=== PATIENT | female | born 1950 | race Caucasian/White ===

== ENCOUNTER 2018-02-27 11:27 | Emergency (ER) | payer MEDICARE, OTHER ==
[~2018-02-27] VITALS: Ht 157.5 cm; Wt 64.9 kg
[~2018-02-27 11:27] MED LIST: DOK250 MG PO; HYDROCODON-ACE1 EA11 PO; IBUPROFEN400 MG PO; ONDANSETRON HCL4 MG PO; OXYCODONE HCL5 MG PO; TYLENOL325 MG PO; XARELTO10 MG PO
--- OUTSIDE RECORDS SUMMARY | 2018-02-27 12:00 | XMS | Clinical Summary ---
Demographics + + + | Address | [address] | | | [place] [address] | + + + | Home Phone | | + + + | Preferred Language | Unknown | + + + | Marital Status | | + + + | Evangelical Affiliation | [id number] | + + + | Race | Unknown | + + + | Ethnic Group | Unknown | + + + Author + + + | Author | [facility] | | | and [place] | + + + | Organization | [facility] | | | and [place] | + + + | Address | Unknown | + + + | Phone | Unavailable | + + + Support + + +---------+ + | Name | Relationship | Address | Phone | + + +---------+ + | Kevin Coon ECON | Unknown | | + + +---------+ + Care Team Providers + +------+ + | Care Patent Prosecution Attorney Name | Role | Phone | + +------+ + | Wicho Woodson | PP | | + +------+ + Allergies + + + + + + | Active Allergy | Reactions | Severity | Noted | Comments | | | | | Date | | + + + + + + | Sulfa Antibiotics | Other (See Comments) | | 06/05/20 | As a child, mom | | | | | 15 | told her - doesn't | | | | | | know reaction | + + + + + + Current Medications + + +-------+---------+------+------+-------+ | Prescription | Sig. | Disp. | Refills | Star | End | Statu | | | | | | t | Date | s | | | | | | Date | | | + + +-------+---------+------+------+-------+ | RESTASIS 0.05 % | Place 1 drop into | | 5 | 06/1 | | Activ | | ophthalmic emulsion | both eyes 2 times | | | 2/20 | | e | | | daily. | | | 17 | | | + + +-------+---------+------+------+-------+ | doxycycline | Take 50 mg by mouth | | 3 | 07/1 | | Activ | | (VIBRAMYCIN) 50 MG | Daily. | | | 0/20 | | e | | capsule | | | | 17 | | | + + +-------+---------+------+------+-------+ Active Problems + + + | Problem | Noted Date | + + + | H/O TKA Total knee arthroplasty, right - 2013 | 06/23/2017 | + + + | Raynaud's disease | 06/23/2017 | + + + | Sjogren's disease | 11/03/1994 | + + + + + | Overview: Sj gren's syndrome is an autoimmune disease | | characterized by dryness of the mouth and eyes. | + + Social History + +-------+ +--------+------+ | Tobacco Use | Types | Packs/Day | Years | Date | | | | | Used | | + +-------+ +--------+------+ | Never Smoker | | | | | + +-------+ +--------+------+ + +---+---+---+ | Smokeless Tobacco: | | | | | Never Used | | | | + +---+---+---+ + + +---------+ + | Alcohol Use | Drinks/We | oz/Week | Comments | | | ek | | | + + +---------+ + | Yes | | | once a month | + + +---------+ + + + + | Sex Assigned at | Date Recorded | | | | + + + | Not on file | | + + + Last Filed Vital Signs + + + + | Vital Sign | Reading | Time Taken | + + + + | Blood Pressure | 120/66 | 06/24/2017899 PDT | + + + + | Pulse | 60 | 06/24/2017899 PDT | + + + + | Temperature | 37 C (98.6 F) | 06/24/201743 PDT | + + + + | Respiratory Rate | 13 | 06/24/2017899 PDT | + + + + | Oxygen Saturation | 100% | 06/24/2017899 PDT | + + + + | Inhaled Oxygen | - | - | | Concentration | | | + + + + | Weight | 66.7 kg (147 lb) | 06/24/2017710 PDT | + + + + | Height | 157.5 cm (5' 2") | 06/24/2017710 PDT | + + + + | Body Mass Index | 26.89 | 06/24/2017710 PDT | + + + + Plan of Treatment + + + + + | Health Maintenance | Due Date | Last Done | Comments | + + + + + | Hepatitis C | | | | | Screening | 8 | | | + + + + + | Vaccine: | | | | | Dtap/Tdap/Td (1 - | 7 | | | | Tdap) | | | | + + + + + | BREAST CANCER | | | | | SCREENING (MAMM Q2 | 8 | | | | YEARS 50-74) | | | | + + + + + | COLON CANCER | | | | | SCREENING | 8 | | | | (COLONOSCOPY EVERY | | | | | 10 YEARS 50-75) | | | | + + + + + | Vaccine: | | | | | Pneumococcal 65+ | 3 | | | | Low/Medium Risk (1 | | | | | of 2 - PCV13) | | | | + + + + + | Vaccine: Influenza | | | | | (Season Ended) | 8 | | | + + + + + Implants + +--------+--------+ +--------+--------+--------+ | Implanted | Type | Area | Manufacture | Device | Expira | Model | | | | | r | | tion | / | | | | | | Identi | Date | Serial | | | | | | fier | | / Lot | + +--------+--------+ +--------+--------+--------+ | Lens Tecnis Preloaded Pcb | Generi | Right: | GOMES | | 12/06/ | [id number] | | 20.5 - [id number]: | c | Eye | MEDICAL | | 2020 | [id number] | | Qty: 1 on 06/06/2017 by | | | [employer] - | | | /[id number] | | Igor Donato [place] | | | [place] | | | [id number] | | | | | | | | / | + +--------+--------+ +--------+--------+--------+ | Lens Tecnis Preloaded Pcb | Generi | Left: | GOMES | | 05/01/ | [id number] | | 21.5 - [id number]: | c | Eye | MEDICAL | | 2020 | [id number] | | Qty: 1 on 06/24/2017 by | | | [employer] - | | | /[id number] | | Igor Donato MD | | | [place] | | | [id number] | | | | | | | | / | + +--------+--------+ +--------+--------+--------+ Results Not on filefrom Last 3 Months Insurance + +--------+ +--------+ +---------+ | Payer | Benefi | Subscriber | Type | Phone | Address | | | t Plan | ID | | | | | | / | | | | | | | Group | | | | | + +--------+ +--------+ +---------+ | MEDICARE | MEDICA | xxxxxxxxxx | Medica | [phone]- | | | | RE | | re | [phone] | | | | PART A | | | | | | | AND B | | | | | + +--------+ +--------+ +---------+ | [employer] | UNITED | [phone] | Indemn | [phone] | | | | OF | | ity | 1000 | | | | [place] | | | | | | | MDCR | | | | | | | SUPPL | | | | | + +--------+ +--------+ +---------+ + +--------+ +--------+ + + | Guarantor Name | Accoun | Relation to | Date | Phone | Billing Address | | | t Type | Patient | of | | | | | | | | | | + +--------+ +--------+ + + | LEANA COON | Person | Self | [birth year] | Home: | [address] | | [address] | jo/Wojciech | | [phone] [place] [address] | | | benita | | | [phone] | | + +--------+ +--------+ + +
--- NOTE | 2018-02-28 20:56 | EKG ---
[facility] [address] [facility] [place] [address] Signed Normal sinus rhythm Normal ECG No previous ECGs available Confirmed by SALLY HARKINS MD ([id number]) on 02/28/2018 8:56:37 PM Electronically Signed By: SALLY HARKINS MD 02/28/18 2056 PATIENT NAME: ANTONIEDWENDY MEJIA Electrocardiogram DATE OF : 46 PHYSICIAN: SALLY HARKINS MD REPORT #: [id number] REPORT IS CONFIDENTIAL AND NOT TO BE RELEASED WITHOUT AUTHORIZATION
== END 2018-02-27 12:59 | disposition home or self-care (01) ==
LOC: ED 11:27
DX: R07.89 Other chest pain (principal); Z88.2 Allergy status to sulfonamides; Z79.899 Other long term (current) drug therapy
CPT/HCPCS: 71045; 80053; 81001; 84484; 85025; 93005; 93010; 99283

== ENCOUNTER 2018-07-04 17:30 | Emergency (ER) | payer MEDICARE, OTHER ==
[~2018-07-04] VITALS: Ht 157.5 cm; Wt 64.9 kg
[2018-07-04] MEDS ORDERED: FAMOTIDINE40 MG PO (17:48)
[2018-07-04] MEDS ORDERED: POLYETHYLENE G255 GM PO (17:49)
[2018-07-04] MEDS ORDERED: SENNA-S LAXATI1 EACH PO (17:49)
[2018-07-04] MEDS ORDERED: FLAGYL500 MG PO (20:19)
[2018-07-04] MEDS ORDERED: CIPRO500 MG PO (20:19)
== END 2018-07-04 20:33 | disposition home or self-care (01) ==
LOC: ED 17:30
DX: K57.92 Diverticulitis of intestine, part unspecified, without perforation or abscess without bleeding (principal); K57.30 Diverticulosis of large intestine without perforation or abscess without bleeding; Z88.2 Allergy status to sulfonamides; Z79.899 Other long term (current) drug therapy
CPT/HCPCS: 74177; 80053; 81001; 82150; 83690; 85025; 96361; 96374; 99284; J2405; J7030; Q9967

== ENCOUNTER 2019-03-22 12:07 | Day surgery (SDC) | payer MEDICARE, OTHER ==
[~2019-03-22] VITALS: Ht 157.5 cm; Wt 69.4 kg
[~2019-03-22 12:07] MED LIST changes: +CIPRO500 MG PO; +FAMOTIDINE40 MG PO; +FLAGYL500 MG PO; +POLYETHYLENE G255 GM PO; +SENNA-S LAXATI1 EACH PO
--- NOTE | 2019-03-22 13:37 | NUR ---
03/22/19 1337 Sidra Estrada 1328 PT ARRIVED IN PACU AWAKE WITH NO C/O'S. ABD SOFT AND LAYING ON L SIDE. 1335 REPOSITONED TO BACK PER PT REQUEST.
--- NOTE | 2019-03-22 15:45 | NUR ---
1500 PT COMPLAINS ABOUT BEING COLD WARM BLACKET GIVEN AND GARCIA HUGGER USED. PT FELL BACK TO SLEEP.
--- NOTE | 2019-03-22 15:45 | NUR ---
1425 PT BACK TO ROOM FROM PACU SLEEPY BUT AROUSABLE DENIES PAIN OR NAUSEA.
--- NOTE | 2019-03-22 15:47 | NUR ---
1530 PT AWAKE AND ALERT STATES READINESS TO GO HOME PT DRESSED ON HER OWN DISCHARGE INSTRUCTIONS GIVEN TO PT SHE VOICED UNDERSTANDING.
--- NOTE | 2019-03-23 11:41 | OR ---
[facility] [address] [place], [place] [address] Signed DATE OF OPERATION: 03/22/2019 SURGEON: Livan Parikh MD PREOPERATIVE DIAGNOSES: 1. History of diverticulitis with abnormal thickening in sigmoid colon. 2. No family history of colon cancer. POSTOPERATIVE DIAGNOSES: 1. Extensive diverticular changes of sigmoid and left colon. 2. Polyps x2 (splenic flexure and sigmoid). PROCEDURE: Total colonoscopy to cecum with cold morcellation polypectomy x2. ANESTHESIA: Intravenous sedation with fentanyl 100 mcg, Versed 4 mg. INDICATION: This 68-year-old white woman is a patient Dr. Harkins and is referred for colonoscopy. She has had diverticulitis in the past including an episode this spring. She underwent a CT scan of the abdomen and pelvis on July 04, 2018, showing a circumferential thickening of the sigmoid colon, considered likely related to diverticular disease. A segment of thickening was about 6 inches in length. There was pericolonic stranding and some pelvic fluid consistent with diverticulitis. However, the possibility of neoplasm was considered as well. She has no family history of colon cancer. Her last colonoscopy was 2013 for the indication of rectal bleeding, which showed to have only the diverticula. She is admitted at this time to undergo colonoscopy. She understands the risks of bleeding, infection, and perforation. FINDINGS: The prep was excellent. Complete colonoscopy was undertaken to the cecum without question. There were two polyps, both of them rather small, one at the splenic flexure. The other in the sigmoid, both were excised completely with cold morcellation technique. There were no other findings of concern and specifically no sign of cancer. PROCEDURE: The patient was brought to the endoscopy suite and placed in lateral decubitus position. She was given intravenous sedation to the point of slurred speech and nystagmus with full cardiopulmonary monitoring. Digital rectal examination was normal. Electronically Signed By: LIVAN PARIKH MD 03/23/19 1141 PATIENT NAME: ED CORRALES OPERATIVE REPORT DATE OF : 46 REPORT #: [id number] PHYSICIAN: LIVAN PARIKH MD PCP: SALLY HARKINS MD REPORT IS CONFIDENTIAL AND NOT TO BE RELEASED WITHOUT AUTHORIZATION [facility] [address] [place], [place] [address] Signed An Olympus video colonoscope was passed in the rectum and manipulated throughout the colon. Sigmoid diverticula were noted as were left-sided diverticulitis. Scope was advanced beyond this ultimately to the cecum. Ileocecal valve and appendiceal orifice were normal. Scope was withdrawn from that point and examination undertaken. At the about the splenic flexure was a small sessile polyp this was excised with cold morcellation technique. Further withdrawal of scope showed diverticula once again in the left sigmoid colon. A small sigmoid polyp was noted. This too was excised with cold morcellation technique. It was clearly an adenoma based on its mucosal characteristics. Further withdrawal to the rectum allowed for retroflexed view, which was normal. The scope was straightened, withdrawn, removed, and the patient was taken to recovery room in good condition. CONCLUDING DIAGNOSES: 1. Diverticular changes of sigmoid and left colon. 2. Polyps x2. PLAN: Recommend repeat colonoscopy in 5 years. Recommend also high-fiber diet. She will return to the ongoing care of Dr. Harkins. Livan Parikh MD JM/MODL /[id number] cc: Sally Harkins MD Copies: SALLY HARKINS MD ~ Electronically Signed By: LIVAN PARIKH MD 03/23/19 1141 PATIENT NAME: ED CORRALES OPERATIVE REPORT DATE OF : 46 REPORT #: [id number] PHYSICIAN: ILVAN PARIKH MD PCP: SALLY HARKINS MD REPORT IS CONFIDENTIAL AND NOT TO BE RELEASED WITHOUT AUTHORIZATION
== END 2019-03-22 15:40 | disposition home or self-care (01) ==
LOC: OPS 12:07 → DS 12:07 → OPS 14:00
PROVIDERS: Surgery
PROC: 0DBN8ZZ Excision of Sigmoid Colon, Via Natural or Artificial Opening Endoscopic (ICD-10-PCS; 2019-03-22)
PROC: 0DBL8ZZ Excision of Transverse Colon, Via Natural or Artificial Opening Endoscopic (ICD-10-PCS; principal; 2019-03-22 14:00)
DX: Z12.11 Encounter for screening for malignant neoplasm of colon (principal); D12.3 Benign neoplasm of transverse colon; D12.5 Benign neoplasm of sigmoid colon; K57.30 Diverticulosis of large intestine without perforation or abscess without bleeding; Z88.2 Allergy status to sulfonamides; K21.9 Gastro-esophageal reflux disease without esophagitis; Z98.890 Other specified postprocedural states; Z96.651 Presence of right artificial knee joint; Z90.711 Acquired absence of uterus with remaining cervical stump
CPT/HCPCS: 99153; G0500; J0690; J2250; J2550; J3010

== ENCOUNTER 2020-04-27 14:14 | Inpatient (IN) | payer MEDICARE, OTHER ==
[~2020-04-27] VITALS: Ht 157.5 cm; Wt 69.4 kg
--- NOTE | ~2020-04-27 | OR ---
[facility] [address] [place], [place] [address] Draft DATE OF OPERATION: 05/10/2020 SURGEON: Ashlyn Davis MD SURGEON: Ashlyn Davis MD GOLF COURSE SUPERINTENDENT: Luis Perkins MD PREOPERATIVE DIAGNOSES: Cystocele, rectocele, stress incontinence. POSTOPERATIVE DIAGNOSES: Cystocele, rectocele, stress incontinence with enterocele. PROCEDURES PERFORMED: Cystocele repair, anterior enterocele resection, sling procedures, cystoscopy, rectocele repair with sacrospinous cuff suspension. ANESTHESIA: Spinal with IV sedation. ESTIMATED BLOOD LOSS: 50 mL. DRAINS: Harris catheter. PACKS: Vaginal. INDICATIONS AND FINDINGS: The patient is a 69-year-old female, who is status post prior hysterectomy with removal of her ovaries per benign indications, who has been having increasing pelvic pressure. She has had difficulty emptying her bladder without reducing her prolapse. She has long history of constipation and difficulty emptying her rectum as well. She also has stress incontinence. She was evaluated and a long discussion was carried out about her various options and at the conclusion, she decided upon the cystocele repair with rectocele repair and sling procedure. At the time of surgery, she had a grade 3 cystocele, which PATIENT NAME: ED CORRALES OPERATIVE REPORT DATE OF : 46 REPORT #: [id number] PHYSICIAN: ASHLYN DAVIS MD PCP: SALLY HARKINS MD REPORT IS CONFIDENTIAL AND NOT TO BE RELEASED WITHOUT AUTHORIZATION [facility] [address] [place], [place] [address] Draft was visible at the antritis. She had a grade 2 rectocele. The cuff was not very well supported. She had an enterocele anteriorly but not posteriorly. DESCRIPTION OF PROCEDURE: The patient was prepped and draped in the dorsal lithotomy position. A weighted speculum was placed in the anterior wall of the vagina was then grasped in the midline with Allis clamps. An incision was made in the midline superficially from the cuff to the neck of the bladder. At this point, the vaginal mucosa was from underlying tissue with a combination of blunt and sharp dissection. During this time, however, the enterocele sac was entered anteriorly above the cuff. This was from the vaginal mucosa and the vaginal cuff circumferentially. This was closed with a pursestring suture of 2-0 chromic. The remaining enterocele stump was then resected. Following this, the remainder of pubovesical fascia was plicated in the midline with interrupted sutures of 0 Vicryl. Following this, the incision was extended toward the urethral meatus. The mid urethra was identified and again the vaginal mucosa was with a combination of blunt and sharp dissection. The dissection was carried out laterally behind the pubic rami on each side. Following this, the obturator notches were identified. An incision made. The trocars for the sling were then placed. These were placed at the lowest most medial portion of the obturator notch, taken immediately behind the pubic rami, and then exiting into the superior lateral aspect of the vaginal incision. These were placed bilaterally. Following this, cystoscopy was done to assure that there was no injury to the bladder. The Harris catheter was removed and a 70-degree scope was placed. There was no blood seen on entering the bladder. The bladder mucosa was circumferentially evaluated and there was no evidence of any injury. No trocars were seen in the bladder. Following this, cystoscopy was complete. The bladder was drained and the Harris catheter replaced. The sling was then placed in the mid urethral area. The trocars were then removed pulling the sling through the obturator notches. Care was taken to keep the sling in the mid urethral area with appropriate tension. The excess was trimmed off after removal of the plastic sleeves. Following this, the vaginal mucosa was trimmed and the midline vaginal incision anteriorly was then closed with a running suture of 2-0 Vicryl. The skin incisions over the sling were closed with interrupted sutures of 3-0 Vicryl Rapide. Attention was directed to the rectocele. A triangle of tissue was removed from the perineal body and the vaginal mucosa was undermined and incised in the midline to the apex of the vagina. This was to the cuff. The vaginal mucosa was from the underlying tissue with a combination of blunt and sharp dissection. It was also carried out to the ischial spines on each side. Because of the poor cuff support a 0 Amherst-Maciel suture was placed using the Capio device in the midportion of the sacrospinous ligaments on each side. The other side of the suture was placed on the angle of the vaginal cuff on each side. Following this, these were tied with good elevation of the vaginal cuff. Following this, the remaining perirectal fascial type tissue was plicated in the midline with interrupted sutures of 0 Vicryl. Following this, a rectal examination was done, which showed good reduction of PATIENT NAME: ED CORRALES OPERATIVE REPORT DATE OF : 46 REPORT #: [id number] PHYSICIAN: ASHLYN DAVIS MD PCP: SALLY HARKINS MD REPORT IS CONFIDENTIAL AND NOT TO BE RELEASED WITHOUT AUTHORIZATION [facility] [address] [place], [place] [address] Draft the rectocele with no evidence of any rectal compromise. At this point, preparations were made for closure of the rectocele repair. The apex appeared to have almost a Y-shaped appearance as pulling the cuff up the incision from the original. These Y areas were closed with a running suture of the 2-0 Vicryl on each side. Following this, the remaining incision was closed with a running suture of 2-0 Vicryl from the apex to the hymenal ring. Interrupted sutures were used to reapproximate the perineal body. The posterior fourchette was recreated with a 2-0 Vicryl. The skin incisions of the perineum were closed with interrupted sutures of the 2-0 Vicryl. Inspection of the vault showed some bleeding points in the midportion of the posterior wall. These were controlled with sixsrf-ld-qgocm sutures of the 2-0 Vicryl. There was also noted to be a bleeding point at the most superior aspect of the anterior repair and this also required a gorxyu-ud-netmv suture of the 2-0 Vicryl. Following this, there was good length to the vagina and there was good hemostasis. There was narrowing at the apex, however. The vaginal canal was then packed with Premarin-coated gauze. She tolerated the procedure well and was taken to the recovery room in good condition. MD ROBERTH Novak/THU /[id number] cc: MD Luis Ochoa, MD Copies: SALLY HARKINS MD,LUIS LICONA MD ~ PATIENT NAME: ANTONIED HASTINGS JACKIE OPERATIVE REPORT DATE OF : 46 REPORT #: [id number] PHYSICIAN: ASHLYN DAVIS MD PCP: SALLY HARKINS MD REPORT IS CONFIDENTIAL AND NOT TO BE RELEASED WITHOUT AUTHORIZATION
[~2020-04-27 14:14] MED LIST changes: +ADVIL200 MG PO; -IBUPROFEN400 MG PO; +MIRALAX17 GM PO; +NORCO 7.5-3251 EACH PO; -POLYETHYLENE G255 GM PO
[2020-05-10] MEDS ORDERED: DERMACINRX5000 UNIT PO (06:13)
--- NOTE | 2020-05-10 10:40 | NUR ---
pt reports feeling very cold, low temp in pacu - bedside report from sanket, reports 97 in pacu with warmer on pt. wm blkts to pt during bedside report and call to maintenance of way supervisor to find warming air for pt comfort and satisfaction. call light oriented to pt and , and water and hygine kit to pt table. while waiting for warm air, this rn made warm packs and placed under pt arms and chest. warm lr to iv pump. pt given swab for mouth for comfort. and oriented to room, care plan board.
--- NOTE | 2020-05-10 10:45 | NUR ---
pt oriented to new room, and rn. call light in reach, núñez draining clear urine, iv patent, denies pain, isidro pad wnl no drainage.
--- NOTE | 2020-05-10 10:46 | NUR ---
05/10/20 1046 Carlyle Velasco SBAR REPORT GIVEN TO SARAH Flores ON MED SURG.
--- NOTE | 2020-05-10 11:19 | NUR ---
warming blkt to pt with warm packs to under arms. warm lr to iv pump.
--- NOTE | 2020-05-10 11:37 | NUR ---
pt and happy with warm air blanket, pain improved, pt resting, temp still low 96.2 and 96.6 temporal - extrimity warm to touch - skin pink warm and dry. unable to get oral temp to read. jewelry department supervisor and scrap charger aware.
--- NOTE | 2020-05-10 11:50 | NUR ---
Patient resting in bed, eyes closed. Family in room. Call light in reach.
--- NOTE | 2020-05-10 11:51 | NUR ---
TEMP 97.8 PT RESTING COMFORTABLE IN BED. DENIES NEEDS. WARM AIR CONTINUES WITH GARCIA PAWS BLKT.
--- NOTE | 2020-05-10 12:23 | NUR ---
marcos polo in use. pt temp good. emptied núñez 300 ml denies needs.
[2020-05-10] MEDS ORDERED: OMEPRAZOLE40 MG PO (12:42)
--- NOTE | 2020-05-10 13:18 | NUR ---
marcos grullon turned off for trial of temp oral 97. pt itching - given bendadryl iv. pain improved, in rm. denies needs.
--- NOTE | 2020-05-10 13:57 | NUR ---
pt tollerated po mashed potatos and gravy and sprite. denies pain - wants to nap.
--- NOTE | 2020-05-10 15:46 | NUR ---
MED REC COMPLETE
--- NOTE | 2020-05-10 16:53 | NUR ---
dr dawn in to visit, pt reports vertigo - dr brown. denies other needs.
--- NOTE | 2020-05-10 17:59 | NUR ---
PATIENT AWAKE IN BED, VITALS AND I&OS CHARTED. TEJINDER EMTIED. CALL LIGHT IN REACH. NO OTHE R NEEDS AT THIS TIME
--- NOTE | 2020-05-10 18:18 | NUR ---
nubain given sq - in rm. pt ate dinner well.
--- NOTE | 2020-05-10 19:25 | NUR ---
c/o vaginal/abd pain, medicated with dilaudid 0.5mg iv, coop with assessment, on room air, ivf infusing, scds in place, partial vag packing in place.
--- NOTE | 2020-05-10 21:06 | NUR ---
CALL LIGHT ANSWERED, IV PUMP ALARMING, INFUSING WNL ORDERED. pt C/O SOME NAUSEA, EMESIS BAG IN REACH, DENIES ANY PRN MEDICATIONS. CALL LIGHT IN REACH.
--- NOTE | 2020-05-10 21:38 | NUR ---
c/o feeling nauseasted, medicated with Zofran, anxious, safety reassured
--- NOTE | 2020-05-10 22:29 | NUR ---
PATIENT HAD LARGE EMESIS, PATIENT TRANSFERS TO CHAIR FOR PARTIAL BED BATH, LINENS AND GOWN CHANGED. PATIENT BACK IN BED, STATES SHE STILL DOESNT FEEL GOOD. RN NOTIFIED.
--- NOTE | 2020-05-11 01:56 | NUR ---
AWAKES EASILY, NO FURTHER C/O EMESIS OR PAIN. ON ROOM AIR, IVF INFUSING, ABD SOFT, PASSING GAS, PARTIAL VAG PACK IN PLACE, SMALL AMOUNT SANGUINEOUS VAGINAL DRAINAGE NOTED, DRU PAD CHANGES, DRU CARE AND F/C CARE DONE, F/C PATENT, SCDS IN PLACE. CALL LIGHT AND FLUIDS AT BEDSIDE
--- NOTE | 2020-05-11 06:14 | NUR ---
f/c dcd at 6624
--- NOTE | 2020-05-11 06:42 | NUR ---
Pt walked earlier in shift, was nauseated x1 and had emesis of undigested food, medicated with zofran x1, staed she feel better this am. was medicated with scheduled Ibuprofen and with Dilaudid at begining of shift, bp 97/60 this am, denies feeling lightheaded or nauseated, no c/o pain. ivf infusing w/o problems, partial vaginal pack in place, scant amount of sanguineous vaginal discharge, isidro pad in place. f/c was dc'd at 0610. procedure explained, receptiove. pt cooperative, uses call light. Pt aware of post void residuals stated understanding
--- NOTE | 2020-05-11 07:20 | NUR ---
bedside report from samuel rn, pt in bed, eyes closed, resp rate reg. call light in reach.
--- NOTE | 2020-05-11 08:28 | NUR ---
Spoke with Dr. Davis for IDT. Pt is doing well and can discharge when she is able to void satisfactory amount.
--- NOTE | 2020-05-11 08:30 | NUR ---
DR QUEZADA IN TO SEE PT.
--- NOTE | 2020-05-11 09:26 | NUR ---
pt reports pain is 1/10 feeling good, educated on plan of day and bladder scan trials - pt receptive. knows to call to void and scan.
--- NOTE | 2020-05-11 11:45 | NUR ---
pt has voided with post void residuals in the 100's x 3 educated not to keep trying every 15 min - but to let the body make urine and feel the urge to go and empty. enc. not to wait too long to go - and enc. po fluids.
--- NOTE | 2020-05-11 12:07 | NUR ---
dr dawn in with this rn to round on pt. denies needs. pain and nausea ok. just aches. denies meds or needs. pt has lunch and is going to eat and nap.
--- NOTE | 2020-05-11 14:00 | NUR ---
Spoke with Elif. She states she lives in [place] in a 1 story home with her spouse, Kevin. She denies any needs. Does not use any DME and is active. Has access to a WC, Walker, and cane but does not use. Plans on discharge when she is voiding sufficient amount.
--- NOTE | 2020-05-11 14:39 | NUR ---
rn in to give po pain meds to pt. while assessing her - she said she took herself to the bathroom with out calling and voided 200 ml - about 10 min ago.. this rn bladder scanned for 338 ml- pt reports need to void still. pt unable to void at that time. educated to pt to relax and try not to think about it. remind her to call for assistance and bladderscan. educated on the rational of waiting in between voids but not too long. family in room.
--- NOTE | 2020-05-11 16:03 | NUR ---
PATIENT TOOK A SHOWER THIS MORNING. LINENS CHANGED. BED ALARM ON. PATIENT HAS FAMILY IN ROOM.
--- NOTE | 2020-05-11 17:08 | NUR ---
PT VOIDED 200 AND BLADDER SCAN BY THIS RN OF 481 OR GREATER. PT IMMEDIATLY RETURNED TO BATHROOM.
--- NOTE | 2020-05-11 17:15 | NUR ---
IN RM WITH DR QUEZADA - NOTIFIED OF POOR VOID TRIAL - PLACE MARR NOW. ULTRAM ORDERED FOR PAIN - REPORTS ACHE AND SORE IN BETWEEN THE MOTIN DOSE AND NEXT IS 2200. PT AGREES WITH PLAN. ORDERING DINNER.
--- NOTE | 2020-05-11 17:45 | NUR ---
THIS RN ATTEMPTED MARR CATH USING STERILE TECHNIQUE. UNABLE TO PLACE DUE TO SWELLING AND STICHES. CATEGORY SPECIALIST NOTIFED OF PLACEMENT WITH NO URINE RETURN. STOPPED PLACEMENT AND LETTING PT REST - FINISH DINNER AND WILL TRY AGAIN AFTER PAIN MED AND TIME WITH ASSISTANCE FROM ANOTHER RN. PT TOLLERATED WELL.
--- NOTE | 2020-05-11 18:03 | NUR ---
pt rates pain 1/10 but c/o aches - and feeling sore. tramdol given po.
--- NOTE | 2020-05-11 18:27 | NUR ---
núñez placed by this rn. cudae cath used and assisted by isaac carroll. placed without difficulty in sterile fashion and pt tollerated well with immediate urine return. secured to pt leg. pt denies other needs. 500 ml immediate return.
--- NOTE | 2020-05-11 19:17 | NUR ---
PATIENT WALKED ON LAP TODAY AROUND MED SURG.
--- NOTE | 2020-05-11 21:52 | NUR ---
VITALS AND I&OS DONE AND CHARTED. FRESH ICE WATER GIVEN. BEDSIDE TABLE AND CALL LIGHT IN REACH.
--- NOTE | 2020-05-11 22:09 | NUR ---
WALKED HALLWAYS SEVERAL TIMES, BACK TO BED, TOLERATED WELL, ON ROOM AIR. MEDICATED WITH SCHEDULED IBUPROFEN, LUNGS CLEAR, LEEROY, F/C PATENT, DRAINING CLEAR YELLOW URINE, AWARE OF F/C BEING DC'D IN AM AND OF POST VOID BLADDER SCANNING, SCANT AMOUNT OF VAGINAL DISCHARGE, DID OWN DRU CARE. SL PATENT. NO C/O LIGHTHEADNESS THIS SHIFT. COOPERATIVE, TOLERATING FLUIDS, DIET . CALL LIGHT AT BEDSIDE
--- NOTE | 2020-05-12 02:28 | NUR ---
EYES CLOSED, NOR MIGUELANGEL DISTRESS, SLEEPING ON L SIDE, F/C PATENT. PT ON ROOM AIR, CALL LIGHT AND FLUIDS AT BEDSIDE, NO N/V
--- NOTE | 2020-05-12 05:15 | NUR ---
PT HAS WALKED HALLWAYS SEVERAL TIMES, TOLERATING WELL. ON ROOM AIR. SL PATENT HAS BEEN MEDICATED WITH IBUPROFEN SHCEDULED WITH GOOD PAIN RELIEF. NO VAGINAL PACKAGING, SCANT AMOUNT OF RED VAGINAL DRAINAGE, SUTURES IN VAGINAL AREA , DRU PAD IN PLACE, F/C PATENT, TO BE DC'D THIS AM, AND PT AWARE OF POST VOID RESIDUAL BLADDER SCANNING. USES CALL LIGHT APPROPRIATELY
--- NOTE | 2020-05-12 05:45 | NUR ---
f/c dc'd at 0545, tip intact, 9cc water balloon 10Fr cudet f/c removed. Pt instructed of post void residual bladder scanning, stated understanding. In bed, room air, no c/o pain but medicated with scheduled Ibuprofen. Compliant procedure explained prior to, pt cooperative
--- NOTE | 2020-05-12 06:40 | NUR ---
Up to br, voided 100cc plus x1 unmeasurable void. post void residual badder scanned >108cc. Pt instructed verbally about notifying nursing personnel inmediate after voiding stated understanding
--- NOTE | 2020-05-12 08:30 | NUR ---
PT HAS BEEN UP WALKING, ORDERED BREAKFAST, HAS VOIDED BUT RETAINING ABOUT 50%, WILL CONT. POST VOID RESIDUALS TO SEE IF THEY IMPROVE, IN GOOD SPIRITS, NO PAIN, AFEBRILE.
--- NOTE | 2020-05-12 10:30 | NUR ---
Spoke with Elif. Plans on dc today as she feels she if voiding amounts needed. States she is feeling well. Denies needs for dc, will go home with her spouse.
--- NOTE | 2020-05-12 11:05 | NUR ---
CALL PLACED TO DR QUEZADA, PT ABLE TO VOID 400ML WITH RESIDUAL SCAN OF 3ML, PT IS ANXIOUS TO GO HOME, IN ROOM, DR QUEZADA SAYS SHE WILL COME OVER TO SEE PT.
[2020-05-12] MEDS ORDERED: IBU800 MG PO (11:29)
[2020-05-12] MEDS ORDERED: KONDREMUL2.5 ML/5 M PO (11:30)
[2020-05-12] MEDS ORDERED: ULTRAM50 MG PO (11:31)
[2020-05-12] MEDS ORDERED: SENNA-S 8.6-501 EACH PO (11:32)
[2020-05-12] MEDS ORDERED: ONDANSETRON ODT8 MG PO (11:33)
[2020-05-12] MEDS ORDERED: TRAVEL SICKNESS25 MG PO (11:34)
--- NOTE | 2020-05-12 11:55 | NUR ---
DC TO HOME WITH AT THIS TIME, DISCHARGE INSTRUCTIONS FOR MEDICATIONS, FOLLOWUP APPOINTMENT AND S/SX TO REPORT. PT VERBALIZES UNDERSTANDING. DENIES ANY QUESTIONS OR CONCERNS.
--- NOTE | 2020-05-12 15:27 | PATH ---
[facility] [address] [place], [place] [address] Signed SPECIMEN(S): A ANTERIOR ENTEROCELE SAC SPECIMEN SOURCE: A. ANTERIOR ENTEROCELE SAC CLINICAL HISTORY: Rectocele, cystocele, prolapse. A P sling. FINAL PATHOLOGIC DIAGNOSIS: Anterior enterocele sac, excision: - Fibromembranous connective tissue with attached fibroadipose tissue, consistent with enterocele sac. NAL:cml:C2NR MICROSCOPIC EXAMINATION: Histologic sections of all submitted blocks are examined by light microscopy. These findings, together with the gross examination, support the pathologic diagnosis. GROSS DESCRIPTION: The specimen, labeled "CT, A.," and designated on the requisition "anterior enterocele sac," is received in formalin and consists of a beltre-brown membranous tissue fragment with attached and detached adipose tissue measuring 2.2 x 1.2 x 0.5 cm in aggregate. The cut surface is unremarkable and the specimen is entirely submitted in cassette (A1). AT (under the direct supervision of a pathologist) The Gross Description was prepared using a voice recognition system. The report was reviewed for accuracy; however, sound-alike word errors, addition and/or deletions may occur. If there is any question about this report, please contact Client Services. PERFORMING LABORATORY: The technical component was performed by [facility], [address] [place] [id number] (Chemistry Intern: Amanda Tran MD; CLIA# [id number]). Professional interpretation was performed by [facility], [address] [address] (CLIA# [id number]). Diagnostician: Cindy Black MD Pathologist Electronically Signed 05/12/2020 PATIENT NAME: ED CORRALES PATHOLOGY DATE OF : 46 REPORT #: [id number] PHYSICIAN: [facility] PCP: SALLY HARKINS MD REPORT IS CONFIDENTIAL AND NOT TO BE RELEASED WITHOUT AUTHORIZATION [address] [address] Signed Copies: ~ PATIENT NAME: ED CORRALES PATHOLOGY DATE OF : 46 REPORT #: [id number] PHYSICIAN: [facility] PCP: SALLY HARKINS MD REPORT IS CONFIDENTIAL AND NOT TO BE RELEASED WITHOUT AUTHORIZATION
== END 2020-05-12 12:07 | disposition home or self-care (01) | DRG 747 ==
LOC: DSVR 05-10 06:00 → MS 05-10 06:45
PROVIDERS: ADMIT Obstetrics & Gynecology
PROC: 0TSD0ZZ Reposition Urethra, Open Approach (ICD-10-PCS; 2020-05-10)
PROC: 0JQC0ZZ Repair Pelvic Region Subcutaneous Tissue and Fascia, Open Approach (ICD-10-PCS; principal; 2020-05-10 06:45)
PROC: 0UQF0ZZ Repair Cul-de-sac, Open Approach (ICD-10-PCS; 2020-05-10 06:45)
PROC: 0USG0ZZ Reposition Vagina, Open Approach (ICD-10-PCS; 2020-05-10 06:45)
DX: N81.11 Cystocele, midline (principal); N81.6 Rectocele; N39.3 Stress incontinence (female) (male); R42 Dizziness and giddiness; K21.9 Gastro-esophageal reflux disease without esophagitis; I73.00 Raynaud's syndrome without gangrene; K59.04 Chronic idiopathic constipation; R11.2 Nausea with vomiting, unspecified; Z88.2 Allergy status to sulfonamides; Z79.899 Other long term (current) drug therapy; Z88.7 Allergy status to serum and vaccine
CPT/HCPCS: 00910; 36415; 80048; 80053; 85025; 88302; C1771; C2631; J0690; J1170; J1200; J1644; J2001; J2274; J2300; J2405; J2704; J7121

== ENCOUNTER 2021-12-29 11:43 | Emergency (ER) | payer MEDICARE, BC ==
[~2021-12-29] VITALS: Ht 157.5 cm; Wt 69.4 kg
[~2021-12-29 11:43] MED LIST changes: +DERMACINRX5000 UNIT PO; +IBU800 MG PO; +KONDREMUL2.5 ML/5 M PO; +OMEPRAZOLE40 MG PO; +ONDANSETRON ODT8 MG PO; +SENNA-S 8.6-501 EACH PO; +TRAVEL SICKNESS25 MG PO; +ULTRAM50 MG PO
== END 2021-12-29 13:40 | disposition home or self-care (01) ==
LOC: ED 11:43
DX: S83.92XA Sprain of unspecified site of left knee, initial encounter (principal); K21.9 Gastro-esophageal reflux disease without esophagitis; Z88.2 Allergy status to sulfonamides; Z79.899 Other long term (current) drug therapy; X50.1XXA Overexertion from prolonged static or awkward postures, initial encounter
CPT/HCPCS: 73560; 99283-25

== ENCOUNTER 2022-08-05 08:50 | Day surgery (SDC) | payer MEDICARE, BC ==
[~2022-08-05] VITALS: Ht 157.5 cm; Wt 63.6 kg
[~2022-08-05 08:50] MED LIST changes: +LIPITOR10 MG PO
--- NOTE | 2022-08-05 12:10 | NUR ---
THIS RN TO ROOM TO ASSIST JOHN KEANE, WITH NERVE BLOCK. PT PLACED ON 2L O2 BY TX FOR PROCEEDURE. MEDICATIONS GIVEN AND BLOCK PERFORMED BY JOHN KEANE. PT TOELRATED WELL. PT NOW RESTING WITH EYES CLOSED, 2L O2 BY NC REMAINS IN PLACE WITH OXYGEN SATURATIONS 98-100%. BED RAILS UP. CALL LIGHT WITHIN REACH. FAMILY AT BEDSIDE. PTS PRIMARY RN UPDATED.
[2022-08-05] MEDS ORDERED: XARELTO10 MG PO (13:46)
[2022-08-05] MEDS ORDERED: OXYCODONE HCL5 MG PO (13:46)
[2022-08-05] MEDS ORDERED: GABAPENTIN300 MG PO (13:47)
--- NOTE | 2022-08-05 13:53 | NUR ---
08/05/22 1354 Nella Guevara 1341 PATIENT ARRIVES TO PACU AWAKE OFF/ON, BUT DROWSY. RESP EVEN AND UNLABORED, ROOM AIR SATS >94%. PATIENT REPORTS MINIMAL PAIN, DENIES NAUSEA.
--- NOTE | 2022-08-05 14:10 | NUR ---
1410-PATIENT BACK TO ROOM 5 FROM [facility] ON RA. RECEIVED REPORT FROM CHINA RUTHER[place]ORD. PATIENT IS AWAKE LAYING IN BED. RESP EVEN AND UNLABORED. RATES PAIN 5/10. DENIES NAUSEA. DRESSING IS CLEAN, DRY, AND INTACT. CRYO CUFF IN PLACE AND RUNNING. ON-Q PUMP SET AT 4. PATIENT TAKING SIPS OF WATER. IN ROOM. CALL LIGHT WIHIN REACH.
--- NOTE | 2022-08-05 14:25 | NUR ---
1425-PATIENT RATES PAIN 7/10 AND ASKING FOR TYLENOL. 1440-RATES PAIN 8/10. PAIN MEDICATION GIVEN PER EMAR. ELIJAH EATING PUDDING AND CRACKERS.
--- NOTE | 2022-08-05 15:12 | NUR ---
1512-PATIENT RATES PAIN 7/10. PAIN MEDICATION GIVEN PER EMAR. 1515-PATIENT LAYING IN BED AWAKE. RESP EVEN AND UNLABORED. RATES PAIN 7/10. DENIES NAUSEA. DRESSING HAS A SMALL AMOUNT OF RED DRAINAGE. CRYO CUFF IN PLACE. ON-Q PUMP SET AT 4. IN ROOM. CALL LIGHT WITHIN REACH. 1530-TALKED WITH HERMAN LOPEZ REGARDING PAIN. HE WILL COME SEE PATIENT. 1535-[employer] IN ROOM REBLOCKING ELIJAH.
--- NOTE | 2022-08-05 15:45 | NUR ---
1545-CARPET TILE LAYER REPORTS PATIENT STATES PAIN 11/12.
--- NOTE | 2022-08-05 16:37 | NUR ---
[id number] IN WITH PATIENT. [id number] AMBULATES WITH WALKER AND PT TO RESTROOM. PATIENT VOIDS 700ML OF ORANGE URINE. [id number] LEAVES DAY SURGERY WITH PT.
--- NOTE | 2022-08-05 16:58 | NUR ---
[id number] BACK TO ROOM FROM PT.
--- NOTE | 2022-08-05 16:59 | NUR ---
[id number] BACK IN BED LAYING DOWN. RESP EVEN AND UNLABORED. RATES PAIN /. DENIES NAUSEA. DRESSING HAS MODERATED AMOUNT OF DRAINAGE. CRYO CUFF IN PLACE. ON-Q PUMP SET AT 4. PATIENT EATING PUDDING. AT BEDSIDE. CALL LIGHT WITHIN REACH.
--- NOTE | 2022-08-05 17:45 | NUR ---
9055-PROVIDED PATIENT WITH DISCHARGE INSTRUCTIONS. ALL QUESTIONS ANSWERED. WENT OVER ALL MEDICATIONS. PATIENT AMBULATES WITH WALKER TO WHEELCHAIR. RATES PAIN 11/12. RIDE PROVIDED TO FRONT OF HOSPITAL WHERE WAS WAITING WITH CAR.
--- NOTE | 2022-08-09 06:21 | OR ---
[facility] [address] [facility] [place], [place] [address] Signed DATE OF OPERATION: 08/05/2022 SURGEON: Shaun Lassiter MD PREOPERATIVE DIAGNOSIS: Severe degenerative joint disease, left knee. POSTOPERATIVE DIAGNOSIS: Severe degenerative joint disease, left knee. PROCEDURE PERFORMED: Left total knee arthroplasty with Hector. CHOCOLATIER: None. ANESTHESIA: Spinal. BLOOD LOSS: 175 mL. TOURNIQUET TIME: Zero. IMPLANTS: Vivian Triathlon size 4 femur, 3 tibia, 10 mm polyethylene and 32 mm patella. BRIEF HISTORY: Ed is a 72-year-old female with progressive worsening of her osteoarthritis. We have treated this over the years with injections, anti-inflammatories and bracing without substantial relief. Risks, benefits, and alternatives were discussed with her and she elected to proceed once consent was obtained. PROCEDURE IN DETAIL: She was taken to the operating room after adequate anesthesia she was placed on the operating room table. Hip bump was placed and the left leg was prepped and draped in a standard sterile fashion. The knee was approached through standard anterior incision. A mid vastus approach was taken for the arthrotomy. The infrapatellar fat pad was excised. The MCL was elevated as a sleeve around the posteromedial corner. The patella Electronically Signed By: SHAUN LASSITER MD 08/09/22 0621 PATIENT NAME: ED CORRALES OPERATIVE REPORT DATE OF : 46 REPORT #: [id number] PHYSICIAN: SHAUN LASSITER MD PCP: SALLY HARKINS MD REPORT IS CONFIDENTIAL AND NOT TO BE RELEASED WITHOUT AUTHORIZATION [facility] [address] [place], [place] [address] Signed was mobilized laterally and the checkpoint was placed in medial femoral condyle and in the proximal tibia. The computer rays were placed in the medial femoral condyle and percutaneously into the tibia. The leg was then registered with the computer. The fine anatomic points of the knee were then registered. The varus valgus testing was undertaken and the ligamentous imbalance was corrected using the prosthesis. The robot was then brought in, four straight cuts and the two angled cuts were made with care taken to protect the patellar tendon and MCL. The posterior osteophytes removed off the femur with no posterior release was performed. The trials were positioned. The knee was taken from 0-130 degrees with good stability throughout. The patella was cut, sized and drilled for a 32 mm patella. The distal femur was drilled and the proximal tibia was finished using the keel punch. She had good bone everywhere except for the patella, so we elected to cement just the patella. The tibia was impacted into position, followed by the polyethylene. The femur was then impacted. The knee was extended and nicely loaded. The cement was applied to the patella and the patellar implant and the implant was clamped into position, all excess cement was removed. The cement was allowed to harden, once it hardened sufficiently, the remaining overflow was removed. The periarticular soft tissues were injected with 100 mL ropivacaine Toradol mixture. The knee was pulse lavaged at intervals throughout the procedure. A total of 3 L were used of normal saline. The knee was soaked with Aricept in the midportion. The On-Q pain pump was percutaneously placed into the adductor canal from the suprapatellar pouch. The arthrotomy was then closed using #2 Stratafix, subcutaneous tissue with 0 Stratafix, and skin with isha. The wound was dressed with Acticoat 7 dressing, ABD, and Mal wrap. She tolerated the procedure well. All sponge, needle, and instrument counts were correct. Shaun Lassiter MD BA/MODL /[id number] Copies: ~ Electronically Signed By: SHAUN LASSITER MD 08/09/22 0621 PATIENT NAME: ED CORRALES OPERATIVE REPORT DATE OF : 46 REPORT #: [id number] PHYSICIAN: SHAUN LASSITER MD PCP: SALLY HARKINS MD REPORT IS CONFIDENTIAL AND NOT TO BE RELEASED WITHOUT AUTHORIZATION
== END 2022-08-05 17:40 | disposition home or self-care (01) ==
LOC: DS 08:50
PROVIDERS: ATTEND Specialist
DX: M17.12 Unilateral primary osteoarthritis, left knee (principal); G89.18 Other acute postprocedural pain; Z20.822 Contact with and (suspected) exposure to COVID-19
CPT/HCPCS: 64447; 76942; 97161; C1713; C1776; J0131; J0690; J1100; J1885; J2001; J2250; J2704; J2795; J7121

== ENCOUNTER 2023-06-13 06:35 | Day surgery (SDC) | payer MEDICARE, BC ==
[2023-06-11 16:01] VITALS: BP 138/85
[~2023-06-13] VITALS: Ht 157.5 cm; Wt 66.8 kg
[~2023-06-13 06:35] MED LIST changes: +GABAPENTIN300 MG PO
[2023-06-13 06:50] VITALS: BP 111/95
[2023-06-13] MEDS ORDERED: HYDROCODON-ACE1 EA10 PO (08:18)
--- NOTE | 2023-06-13 08:29 | NUR ---
06/13/23 0829 Leigha Lassiter 0820 PT O PACU AWAKE AND ALERT DENIES PAIN AND NAUSEA. ICE PLACED ON LT HAND. PT COMPLAINS OF BEING COLD GARCIA HUGGER PLACED ON PT.
[2023-06-13 08:47] VITALS: BP 124/68
--- NOTE | 2023-06-16 07:05 | OR ---
[facility] [facility] [address] [place], [place] [address] Signed DATE OF OPERATION: 06/13/2023 SURGEON: Shaun Lassiter MD PREOPERATIVE DIAGNOSIS: Trigger finger, left thumb/left long. POSTOPERATIVE DIAGNOSIS: Trigger finger, left thumb/left long. PROCEDURE PERFORMED: Trigger finger releases, left long and thumb. ENVIRONMENTAL PLANNING ENGINEER: None. ANESTHESIA: [place] block. TOURNIQUET TIME: 20 minutes. BRIEF HISTORY: Ed is a 72-year-old female with locking in her thumb and long finger. She has had prior trigger fingers with successful releases. Risks and benefits of operative treatment were discussed with her and she elected to proceed. DESCRIPTION OF PROCEDURE: Once consent was obtained, she was taken to the operating room. After adequate anesthesia, she was left on the day surgery bed. The hand table was brought in and [place] block was performed. The hand was then prepped and draped in a standard sterile fashion. The long finger was approached first. The skin was incised longitudinally in the distal palmar crease. This was carried down to the tendon sheath. The A1 marilyn was dissected free of overlying soft tissue under loupe magnification. It was then released directly. The finger was moved and there was excellent excursion of the tendon with no locking or triggering. The thumb was approached through a transverse incision overlying the A1 marilyn. This was carried through the subcutaneous tissue with care taken to protect and retract the digital nerve. The A1 marilyn was noted. There was a large lump on the FPL. The A1 marilyn was carefully released under direct loupe magnification. The thumb was then moved with excellent excursion of the tendon and no Electronically Signed By: SHAUN LASSITER MD 06/16/23 0705 PATIENT NAME: ED SUAREZ OPERATIVE REPORT DATE OF : 46 REPORT #: [id number] PHYSICIAN: SHAUN LASSITER MD PCP: NO PRIMARY CARE PHYSICIAN REPORT IS CONFIDENTIAL AND NOT TO BE RELEASED WITHOUT AUTHORIZATION [facility] [address] [place], [place] [address] Signed locking or triggering. Both wounds were then copiously irrigated with normal saline, closed with 3-0 nylon and injected with 0.25% plain Marcaine. Wounds were then dressed with bacitracin, Adaptic, 4 x 8s, and gauze. She tolerated the procedure well. All sponge, needle, and instrument counts were correct. Shaun Lassiter MD BA/MODL /[id number] Copies: ~ Electronically Signed By: SHAUN LASSITER MD 06/16/23 0705 PATIENT NAME: ED SUAREZ OPERATIVE REPORT DATE OF : 46 REPORT #: [id number] PHYSICIAN: SHAUN LASSITER MD PCP: NO PRIMARY CARE PHYSICIAN REPORT IS CONFIDENTIAL AND NOT TO BE RELEASED WITHOUT AUTHORIZATION
== END 2023-06-13 09:00 | disposition home or self-care (01) ==
LOC: DS 06:35
PROVIDERS: ATTEND Specialist
PROC: 0LN80ZZ Release Left Hand Tendon, Open Approach (ICD-10-PCS; 2023-06-13)
PROC: 0LN80ZZ Release Left Hand Tendon, Open Approach (ICD-10-PCS; principal; 2023-06-13 08:30)
DX: M65.312 Trigger thumb, left thumb (principal); Z88.2 Allergy status to sulfonamides; K21.9 Gastro-esophageal reflux disease without esophagitis; E78.00 Pure hypercholesterolemia, unspecified; M65.332 Trigger finger, left middle finger
CPT/HCPCS: J0131; J0690; J1100; J2704; J7121